=== PATIENT | male | born 1990 | race Caucasian/White ===

== ENCOUNTER → 2023-02-26 | Outpatient (CLI) | payer OTHER | END | disposition home or self-care (01) | LOC: RADPV 09:06 | PROVIDERS: ATTEND Chiropractor | DX: M50.322 Other cervical disc degeneration at C5-C6 level (principal); M25.78 Osteophyte, vertebrae; M46.92 Unspecified inflammatory spondylopathy, cervical region | CPT/HCPCS: 72040 ==